=== PATIENT | female | born 1960 | race Caucasian/White ===

== ENCOUNTER 2019-12-09 16:24 | Outpatient (CLI) | payer OTHER, SELFPAY ==
--- NOTE | 2019-12-09 17:01 | ECG_ITS ---
Measurements Intervals [place] Rate: 60 P: 61 HI: 158 QRS: 46 QRSD: 87 T: 33 QT: 394 QTc: 394 Interpretive Statements SINUS RHYTHM NORMAL ECG Electronically Signed On 12-09-2019 17:41:57 CDT by David Calderon D.O.
[2019-12-09 18:12] LABS: Blood Urea Nitrogen 17 mg/dL (7-17); Calcium 9.4 mg/dL (8.4-10.2); Carbon Dioxide 31 mmol/L (22-30); Chloride 102 mmol/L (98-107); Estimated Glomerular Filt Rate > 60; Glucose 150 mg/dL (65-105); Potassium 3.8 mmol/L (3.4-5.0); Sodium 138 mmol/L (137-145)
== END 2019-12-09 16:25 | disposition home or self-care (01) ==
PROVIDERS: PCP Family Medicine; Visit Provider Orthopaedic Surgery
DX: Z01.818 Encounter for other preprocedural examination (principal)
CPT/HCPCS: 36415; 80048; 93005